=== PATIENT | female | born 1985 | race American Indian/Alaskan Native ===

== ENCOUNTER 2020-03-08 14:48 | Emergency (ER) | payer BC ==
[~2020-03-08] VITALS: Ht 165.1 cm; Wt 84.1 kg
[2020-03-08 16:11] VITALS: BP 138/97
== END 2020-03-08 16:16 | disposition home or self-care (01) ==
LOC: ER 14:48
DX: Z03.818 Encounter for observation for suspected exposure to other biological agents ruled out (principal); Z88.1 Allergy status to other antibiotic agents; Z88.8 Allergy status to other drugs, medicaments and biological substances
CPT/HCPCS: 36415; 99282